=== PATIENT | male | born 1960 | race African-American/Black ===

== ENCOUNTER 2020-03-06 10:49 | Emergency (ER) | payer OTHER ==
[2020-03-06] MEDS ORDERED: Lidocaine 1% w/Epinephrine 1:100K 20 ML VIAL ONE (12:29)
== END 2020-03-06 12:59 | disposition home or self-care (01) ==
LOC: ERS 10:49
DX: L02.11 Cutaneous abscess of neck (principal); F17.290 Nicotine dependence, other tobacco product, uncomplicated; Z79.899 Other long term (current) drug therapy
CPT/HCPCS: 10060